=== PATIENT | male | born 1975 | race African-American/Black ===

== ENCOUNTER 2018-10-01 23:52 | Inpatient (IN) | payer OTHER ==
[~2018-10-01] VITALS: Ht 177.8 cm; Wt 142.0 kg
[2018-10-01 23:54] VITALS: BP 144/70
[2018-10-02] VITALS (32 sets, daily range): BP systolic 108–162; BP diastolic 47–92
[2018-10-02 00:27] LABS: ABSOLUTE BASOPHILS 0.1 thou/uL (0.0-0.2); ABSOLUTE EOSINOPHILS 0.1 thou/uL (0.0-0.7); ABSOLUTE LYMPHOCYTES 3.5 thou/uL (0.8-5.3); ABSOLUTE MONOCYTES 0.9 thou/uL (0.0-1.2); ABSOLUTE NEUTROPHILS 6.3 thou/uL (1.6-8.1); BASOPHILS 1.3 %; HEMATOCRIT 48.5 % (42.0-52.0); HEMOGLOBIN 16.7 gm/dL (14.0-18.0); LYMPHOCYTES 31.8 %; MCHC 34.4 g/dL (28.0-37.0); MONOCYTES 7.8 %; MPV 8.8 fl. (7.2-11.1); NUCLEATED RBCS 0 /100WBC; PLATELET COUNT* 225 thou/uL (150-400); POLYS 58.1 %; RBC 5.39 mil/uL (4.50-6.00); RDW-CV 13.6 % (10.5-14.5); WBC 10.9 thou/uL (4.0-11.0)
[2018-10-02 00:33] LABS: ANION GAP 11 mmol/L (7-16); APTT 26.1 Seconds (25.0-31.3); BUN 16 mg/dL (7-18); CALCIUM 8.6 mg/dL (8.5-10.1); CHLORIDE 104 mmol/L (98-107); CO2 27 mmol/L (21-32); CREATININE 1.2 mg/dL (0.6-1.3); GLUCOSE 125 mg/dL (70-99); INR 0.9; POTASSIUM 3.6 mmol/L (3.5-5.1); PROTIME 9.4 Seconds (9.20-11.50); SODIUM 142 mmol/L (136-145)
[2018-10-02 00:43] LABS: ALBUMIN 3.4 g/dL (3.4-5.0); ALKALINE PHOSPHATASE 77 U/L (46-116); LIPASE 130 U/L (73-393); MAGNESIUM 2.2 mg/dL (1.8-2.4); NT-PRO BRAIN NAT PEPTIDE 118 pg/mL (<300); SGPT 169 U/L (30-65); TOTAL BILIRUBIN 0.3 mg/dL (<0.1-1.0); TROPONIN-I LEVEL <0.06 ng/mL (<0.06)
[2018-10-02 01:15] LABS: SGOT 183 U/L (15-37)
[2018-10-02 04:37] LABS: CHOLESTEROL 244 mg/dL (<200); HDL CHOLESTEROL 33 mg/dL (>40); LDL CHOLESTEROL 146 mg/dL (<100); SERUM ASSESSMENT Moderate Lipemia; TC:HDL 7.4 Ratio (Not establshd); TRIGLYCERIDE 328 mg/dL (<150); VLDL 66 mg/dL (<40)
[2018-10-02 08:41] LABS: CALCIUM 8.5 mg/dL (8.5-10.1); POTASSIUM 3.9 mmol/L (3.5-5.1); TROPONIN-I LEVEL 0.11 ng/mL (<0.06)
--- NOTE | 2018-10-02 14:12 | CON ---
[address] [address] CONSULTATION Name: MICA VALENZUELA Room: [address] IN [facility]#: [id number] Admission: 10/02/18 Attend Phys: Rubio Santiago MD Discharge: Date of : 71 Report #: [id number] THIS REPORT FOR: //name// CC: Chuy Santiago INDICATION: Complete heart block. HISTORY OF PRESENT ILLNESS: The patient is a very pleasant 43-year-old gentleman who has had intermittent symptoms of lightheadedness, dizziness and even syncope for the last couple of years. He presented to the Emergency Room when he had prolonged symptoms and was found to be in complete heart block. He describes a slight chest pressure, lightheadedness, dizziness. He is without overt chest pain. He denies any other cardiac complaint at this time. He has no prior cardiac history. PAST MEDICAL HISTORY: Hyperlipidemia. HOME MEDICATIONS: None. ALLERGIES: None. FAMILY HISTORY: The patient's mother has a pacemaker. SOCIAL HISTORY: The patient drinks alcohol occasionally, marijuana occasionally. He does not smoke tobacco. REVIEW OF SYSTEMS: He reports some chest tightness, but denies any palpitations or pressure. He is without other complaint. PHYSICAL EXAMINATION: VITAL SIGNS: Blood pressure is 144/70, and heart rate 30. Telemetry shows third degree AV block. HEENT: Extraocular muscles intact. Mucous membranes are moist. NECK: Shows no jugular venous distention. CHEST: Reveals clear lung sullivan. CARDIAC: Reveals a regular rhythm that is bradycardia without gallop or murmur. ABDOMEN: Reveals a protuberant abdomen, soft and nontender. EXTREMITIES: Shows no edema. Peripheral pulses are 2+ and palpable. SKIN: Warm and dry. A 12-lead EKG shows complete heart block with ventricular response of approximately 30 beats per minute. LABORATORY DATA: Unremarkable. IMPRESSION AND RECOMMENDATIONS: [place] [address] CONSULTATION Name: VALENZUELAMICA HOLGUIN Gloria Room: [address]#: [id number] Admission: 10/02/18 Attend Phys: Rubio Santiago MD Discharge: Date of : 71 Report #: [id number] 1. Complete heart block. The patient will have a temporary pacemaker placed. We will need permanent pacemaker placement ultimately. 2. Chest tightness, likely due to third degree AV block. We will serial cardiac enzymes. Further cardiac evaluation to include an echocardiogram and stress testing. 3. Hyperlipidemia. We will check fasting lipid profile and see if a lipid lowering agent is indicated at this time. <ELECTRONICALLY SIGNED> By: Vasu Charles MD, [facility] 10/02/18 1412 0158 1250Micnaomy Charles MD, FACC /nt
--- NOTE | 2018-10-02 14:27 | CARD ---
[address] [address] CARDIAC CATH REPORT Name: MICA VALENZUELA Room: [address] IN [facility]#: [id number] Admission: 10/02/18 Attend Phys: Rbuio Santiago MD Discharge: Date of : 71 Report #: [id number] THIS REPORT FOR: //name// APPROVED REPORT Study performed: 10/02/2018 00:55:48 Patient Status: In-Patient Room #: Exam: temporary pacemaker placement Indications: Complete Heart Block The patient is a 43 year-old male with a history of Complete Heart Block. Implanted Devices: Temp Pacer insertyed Procedure The patient underwent informed consent. We discussed the details of the procedure including the risks, which include, but not limited to bleeding, infection, vascular damage, cardiac perforation, and pneumothorax. After consent was obtained the patient was brought to the cardiac catheterization lab emergently. The area of the right groin was prepped and draped in sterile fashion. A 6 Divehi venous sheath was placed using the Seldinger technique. A temporary pacemaker was advanced to a secure position with the right ventricular apex. Thresholds were checked in the newly satisfactory. The introducer was sutured in place. A sterile dressing was placed over the temporary pacemaker. The patient was transferred back to the ICU in stable condition. Conclusion 1. Complete heart block. 2. Successful placement of temporary pacemaker via the right femoral vein. Recommendations 1. Plan for permanent pacemaker placement in the near future. <ELECTRONICALLY SIGNED> By: Vasu Charles MD, [facility] 10/02/18 1426 1426 1426Micnaomy Charles MD, FAC /INF
--- NOTE | 2018-10-02 14:32 | CARD ---
[address] [address] CARDIAC CATH REPORT Name: MICA VALENZUELA Room: [address] IN [facility]#: [id number] Admission: 10/02/18 Attend Phys: Rubio Santiago MD Discharge: Date of : 71 Report #: [id number] THIS REPORT FOR: //name// APPROVED REPORT Study performed: 10/02/2018 13:13:33 Patient Status: In-Patient Room #: Exam: Insertion of Dual Chamber Permanent Pacemaker Indications: Complete Heart Block The patient is a 43 year-old male with a history of Complete Heart Block. Implanted Devices: DUAL PPM 100Fent 4 Versed Biotronik Eluna 8 DRt, model #426027, serial #[id number] dual-chamber pacing generator. Biotronik Solia S 60, model #253970, serial number [id number] ventricular lead. Biotronik Solia S 53, model #208340, serial #[id number] atrial lead. Procedure The patient underwent informed consent. We discussed the details of the procedure including the risks, which include, but not limited to bleeding, infection, vascular damage, cardiac perforation, and pneumothorax. He understood these risks and was willing to proceed. As such, he was brought to the EP/Cardiac Catheterization laboratory in a fasting and sedated state and prepped and draped in a The patient underwent conscious sedation, with no related complications. The patient was brought to the EP/Cardiac Catheterization laboratory and the left chest and shoulder were prepped and draped in a sterile manner. During this case, Fluoroscopy and visipaque 10cc were used for imaging. The left subclavian region was infiltrated with 2% Lidocaine subcutaneous anesthesia. A transverse incision was made in the left upper chest cavity. The subcutaneous pocket was formed via blunt dissection. Percutaneous venous access was achieved and an introducer sheath was inserted into the [place] [address] CARDIAC CATH REPORT Name: MICA VALENZUELA Room: [address] IN [facility]#: [id number] Admission: 10/02/18 Attend Phys: Rubio Santiago MD Discharge: Date of : 71 Report #: [id number] Sheaths were positions using the modified Seldinger technique Through the introducer sheaths the atrial and ventricular lead wires were positioned in the right atrial appendage and right ventricular apex respectively. Capturing and sensing thresholds were verified. Electrode Parameters P Wave: 4.5 mV R Wave: 10.2 mV Atrial Threshold: 1.2 V at 0.40 ms Ventricular Threshold: 0.9 V at 0.40 ms Atrial Resistance: 687 ohms Ventricular Resistance: 1148 ohms Dual Chamber The atrial and ventricular leads were then secured using 0 silk sutures. The subcutaneous pocket was irrigated with ancef antibiotic solution.The atrial and ventricular leads were attached to the appropriate receptacles on the pulse generator and set screws firmly tightened to insure adequate contact and stability. The lead and pulse generator were placed into the subcutaneous pocket. Sharp and sponge counts were confirmed to be correct. At this time the pocket was closed subcutaneously with a 2.0 Vicryl and the skin was closed with a 4.0 Vicryl. The operative site was dressed in sterile fashion with steri strips and the patient was transferred to the floor in stable condition. Complications The patient tolerated the procedure well and there were no complications associated with the procedure. Findings Mode: DDD/CLS. Lower rate 60 bpm. Upper Rate 130 bpm. Paced AV delay 200 ms. Sensed AV delay 180 ms. Conclusion 1. Complete heart block. 2. Successful placement of a dual-chamber pacemaker with atrial and ventricular lead placement[place] [address] CARDIAC CATH REPORT Name: VALENZUELAMICA Castro Room: [address]#: [id number] Admission: 10/02/18 Attend Phys: Rubio Santiago MD Discharge: Date of : 71 Report #: [id number] 1. Follow-up site check in one week. 2. Follow-up device check in the office in one month. <ELECTRONICALLY SIGNED> By: Vasu Charles MD, [facility] 10/02/18 1432 1432 1432Vasu Charles MD, FACC /INF
[2018-10-03] VITALS (12 sets, daily range): BP systolic 132–164; BP diastolic 83–98
[2018-10-03 02:05] LABS: GLYCOHEMOGLOBIN (HGB A1C) 5.5 % (4.8-5.6)
[2018-10-03 04:26] LABS: HEMATOCRIT 47.9 % (42.0-52.0); HEMOGLOBIN 16.6 gm/dL (14.0-18.0); MCH 31.3 pg (26.0-34.0); MCHC 34.6 g/dL (28.0-37.0); MCV 90.3 fL (80.0-100.0); MPV 8.7 fl. (7.2-11.1); RBC 5.3 mil/uL (4.50-6.00); RDW-CV 13.5 % (10.5-14.5); WBC 9.1 thou/uL (4.0-11.0)
[2018-10-03 04:45] LABS: CALCIUM 8.4 mg/dL (8.5-10.1); MAGNESIUM 1.7 mg/dL (1.8-2.4); POTASSIUM 3.9 mmol/L (3.5-5.1)
[2018-10-03] MEDS ORDERED: ASPIRIN81 M2 PO (07:19)
[2018-10-03] MEDS ORDERED: LIPITOR 20 MG T20 M1 PO (07:19)
--- NOTE | 2018-10-03 10:33 | EKG ---
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: : 1975 Requested By: Vasu Charles Order Number: [id number] Reading : Evans Houston Measurements Intervals Martin Rate: 68 P: 27 NH: 243 QRS: -77 QRSD: 208 T: 97 QT: 518 QTc: 552 Interpretive Statements Sinus rhythm Prolonged NH interval Nonspecific IVCD with LAD LVH with secondary repolarization abnormality No previous ECG available for comparison Electronically Signed On 10-03-2018 10:33:02 CDT by Evans Houston [email or web address] <ELECTRONICALLY SIGNED> By: Evans Houston MD, [facility] 10/03/18 1033 0852 0852 Evans Houston MD, [facility] /EPI
--- NOTE | 2018-10-03 14:27 | EKG ---
[place] [address] ELECTROCARDIOGRAM REPORT Name: MICA VALENZUELA Room: [address] IN [facility]#: [id number] Admission: 10/02/18 Attend Phys: Rubio Santaigo MD Discharge: 10/03/18 Date of : 71 Report #: [id number] THIS REPORT FOR: //name// [facility] ED Test Date: 2018-10-01 Test Time: 23:56:36 Pat Name: MICA VALENZUELA Department: Room: [facility] Gender: M Front End Developer: SHEILA : 1975 Requested By: Tello Lazar Order Number: [id number] MD: Evans Houston Measurements Intervals [place] Rate: 31 P: 53 [place]: QRS: -77 QRSD: 153 T: 119 QT: 659 QTc: 474 Interpretive Statements Complete AV block with wide QRS complex RBBB and LAFB No previous ECG available for comparison Electronically Signed On 10-03-2018 14:26:51 CDT by Evans Houston [email or web address] <ELECTRONICALLY SIGNED> By: Evans Houston MD, [facility] 10/03/18 1426 2356 2356 Evans Houston MD, [facility] /EPI
--- NOTE | 2018-10-03 14:29 | EKG ---
[place] [address] ELECTROCARDIOGRAM REPORT Name: MICA VALENZUELA Room: [address] DIS IN ..#: [id number] Admission: 10/02/18 Attend Phys: Rubio Santiago MD Discharge: 10/03/18 Date of : 71 Report #: [id number] THIS REPORT FOR: //name// [facility] Test Date: 2018-10-03 Test Time: 08:54:19 Pat Name: MICA BIANCA Department: Room: [address] Gender: M Attending Physician: : 1975 Requested By: Vasu Charles Order Number: [id number] Reading MD: Evans Houston Measurements Intervals [place] Rate: 90 P: 168 VT: 43 QRS: -81 QRSD: 208 T: 94 QT: 501 QTc: 613 Interpretive Statements Ventricular-paced rhythm No further analysis attempted due to paced rhythm Compared to ECG 10/03/2018 08:52:23 Sinus rhythm no longer present First degree AV block no longer present Intraventricular conduction delay no longer present Left ventricular hypertrophy no longer present Early repolarization no longer present Electronically Signed On 10-03-2018 14:29:51 CDT by Evans Houston [email or web address] <ELECTRONICALLY SIGNED> By: Evans Houston MD, [facility] 10/03/18 1429 0854 0854 Evans Houston MD, [facility] /EPI
== END 2018-10-03 11:23 | disposition home or self-care (01) | DRG 243 ==
LOC: M.ERS 23:52 → M.ICU 10-02 00:47 → M.TBA-ER 10-02 00:47 → M.ICU 10-02 01:37
PROVIDERS: Emergency Medicine Emergency Medical Services; Internal Medicine Cardiovascular Disease; ADMIT Internal Medicine
DX: I44.2 Atrioventricular block, complete (principal); Z68.41 Body mass index [BMI] 40.0-44.9, adult; E66.01 Morbid (severe) obesity due to excess calories; E78.5 Hyperlipidemia, unspecified; R73.9 Hyperglycemia, unspecified; F12.90 Cannabis use, unspecified, uncomplicated; I25.10 Atherosclerotic heart disease of native coronary artery without angina pectoris; R73.03 Prediabetes; Z79.899 Other long term (current) drug therapy; Z82.49 Family history of ischemic heart disease and other diseases of the circulatory system

== ENCOUNTER 2018-12-05 02:21 | Emergency (ER) | payer OTHER ==
[~2018-12-05] VITALS: Ht 177.8 cm; Wt 147.4 kg
[~2018-12-05 02:21] MED LIST: ASPIRIN81 M2 PO; LIPITOR 20 MG T20 M1 PO
[2018-12-05] MEDS ORDERED: FISH OIL 1,001000 M2 PO (02:32)
[2018-12-05 03:30] LABS: ABSOLUTE BASOPHILS 0.1 thou/uL (0.0-0.2); ABSOLUTE EOSINOPHILS 0.2 thou/uL (0.0-0.7); ABSOLUTE LYMPHOCYTES 2.5 thou/uL (0.8-5.3); ABSOLUTE MONOCYTES 1.1 thou/uL (0.0-1.2); ABSOLUTE NEUTROPHILS 5.3 thou/uL (1.6-8.1); EOSINOPHILS 2.6 %; HEMATOCRIT 48.4 % (42.0-52.0); HEMOGLOBIN 16.2 gm/dL (14.0-18.0); LYMPHOCYTES 27.1 %; MCH 30.2 pg (26.0-34.0); MCHC 33.5 g/dL (28.0-37.0); MONOCYTES 12.3 %; MPV 8.9 fl. (7.2-11.1); NUCLEATED RBCS 0 /100WBC; PLATELET COUNT* 197 thou/uL (150-400); RBC 5.38 mil/uL (4.50-6.00); RDW-CV 13.2 % (10.5-14.5); WBC 9.3 thou/uL (4.0-11.0)
[2018-12-05 03:38] LABS: CALCIUM 8.9 mg/dL (8.5-10.1); CREATININE 1.3 mg/dL (0.6-1.3); POTASSIUM 3.8 mmol/L (3.5-5.1)
[2018-12-05 04:14] LABS: URINE BILIRUBIN NEGATIVE (Negative); URINE BLOOD 3+ (Negative); URINE CLARITY SL CLOUDY; URINE COLOR YELLOW; URINE GLUCOSE-RANDOM NEGATIVE (Negative); URINE KETONES NEGATIVE (Negative); URINE LEUKOCYTES-REFLEX NEGATIVE (Negative); URINE NITRITE-REFLEX NEGATIVE (Negative); URINE PROTEIN 1+ (Negative); URINE UROBILINOGEN 0.2 E.U./dl (0.2-1.0)
[2018-12-05] MEDS ORDERED: NORCO 5-325 TA1 EAC1 PO (04:53)
[2018-12-05 05:12] VITALS: BP 139/71
[2018-12-05 05:15] LABS: BACTERIA-REFLEX 1-9 Few /HPF (None Seen); CASTS None Seen /LPF (None Seen); MUCUS 0-3 Light strn/LPF (None Seen); SQUAMOUS 0-3 Few /LPF (0-3); URINE RBC >20 Many /HPF (0-2); URINE WBC-REFLEX 0-5 Rare /HPF (0-5)
[2018-12-05 05:16] LABS: CRYSTALS None Seen /LPF (None Seen)
== END 2018-12-05 05:16 | disposition home or self-care (01) ==
LOC: M.ERS 02:21
PROVIDERS: Emergency Medicine
DX: N20.1 Calculus of ureter (principal); E78.00 Pure hypercholesterolemia, unspecified

== ENCOUNTER 2019-11-14 08:49 | Inpatient (IN) | payer OTHER ==
[~2019-11-14] VITALS: Ht 177.8 cm; Wt 133.8 kg
[~2019-11-14 08:49] MED LIST changes: +FISH OIL 1,001000 M2 PO; +NORCO 5-325 TA1 EAC1 PO
[2019-11-14 09:08] VITALS: BP 127/65
[2019-11-14] MEDS ORDERED: TOPROL XL25 MG PO (09:38)
[2019-11-14] MEDS ORDERED: TESTOSTERONE (09:39)
[2019-11-14 09:57] LABS: HEMOGLOBIN 19.5 gm/dL (14.0-18.0); MCH 31.5 pg (26.0-34.0); MCHC 34.8 g/dL (28.0-37.0); MCV 90.4 fL (80.0-100.0); MPV 8.3 fl. (7.2-11.1); NUCLEATED RBCS 0 /100WBC; PLATELET COUNT* 196 thou/uL (150-400); WBC 8.3 thou/uL (4.0-11.0)
[2019-11-14 10:15] LABS: CALCIUM 7.8 mg/dL (8.5-10.1)
[2019-11-14 10:16] LABS: BE -0.3 mmol/L (-2 to +3); PCO2 34.6 mmHg (35.0-45.0); PO2 64.4 mmHg (75.0-100.0); pH 7.439 (7.340-7.450)
[2019-11-14 10:17] LABS: APTT 30.7 Seconds (25.0-31.3); PROTIME 10.8 Seconds (9.20-11.50)
[2019-11-14 10:26] LABS: TOTAL BILIRUBIN 0.5 mg/dL (<0.1-1.0); TOTAL PROTEIN 6.7 g/dL (6.4-8.2)
[2019-11-14 10:51] LABS: ABSOLUTE EOSINOPHILS 0.2 thou/uL (0.0-0.7); ABSOLUTE LYMPHOCYTES 0.7 thou/uL (0.8-5.3); ABSOLUTE MONOCYTES 0.2 thou/uL (0.0-1.2); ABSOLUTE NEUTROPHILS 7.2 thou/uL (1.6-8.1); PLATELET ESTIMATE ADEQUATE
[2019-11-14 14:45] VITALS: BP 106/83
--- NOTE | 2019-11-14 15:03 | EKG ---
[place] [address] ELECTROCARDIOGRAM REPORT Name: MICA VALENZUELA JR Room: [place] [address] 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: : 1975 Requested By: Hi Spence Order Number: [id number] MD: Valeriy Stein Measurements Intervals [place] Rate: 79 P: 45 WV: 190 QRS: -49 QRSD: 176 T: 126 QT: 412 QTc: 473 Interpretive Statements Sinus rhythm Probable left atrial enlargement Left bundle branch block Compared to ECG 10/03/2018 08:54:19 Left bundle-branch block now present atrial and Ventricular-paced complex(es) or rhythm no longer present Electronically Signed On 11-14-2019 15:02:46 CDT by Valeriy Stein [email or web address] <ELECTRONICALLY SIGNED> By: Valeriy Stein MD, [facility] 11/14/19 1502 7 Valeriy Stein MD, [facility] /EPI
[2019-11-14 23:07] LABS: HEPATITIS B SURFACE AG Negative (Negative)
[2019-11-15] VITALS (35 sets, daily range): BP systolic 94–158; BP diastolic 41–94
[2019-11-15 08:55] LABS: ALBUMIN 2.7 g/dL (3.4-5.0); CALCIUM 8.2 mg/dL (8.5-10.1); MAGNESIUM 2.1 mg/dL (1.8-2.4); POTASSIUM 3.4 mmol/L (3.5-5.1); TOTAL BILIRUBIN 0.4 mg/dL (<0.1-1.0); TOTAL PROTEIN 7.4 g/dL (6.4-8.2)
[2019-11-15 09:02] LABS: BE 1.9 mmol/L (-2 to +3); PCO2 39.6 mmHg (35.0-45.0); pH 7.437 (7.340-7.450)
[2019-11-15 09:05] LABS: PO2 55.6 mmHg (75.0-100.0)
--- NOTE | 2019-11-15 16:13 | 2DMMODE ---
[place] [address] 2 D/M-MODE ECHOCARDIOGRAM Name: MICA VALENZUELA JR [facility] .R#: [id number] Admission: 11/14/19 Attend Phys: Rubio Santiago, Discharge: Date of : 71 Date of Service: 11/15/19 1613 Report #: [id number] THIS REPORT FOR: cc: Chuy Rocha MD, Anthony MD Holkins,Rome Pierce MD [facility] ~ APPROVED REPORT Study performed: 11/15/2019 14:56:43 EXAM: Comprehensive 2D, Doppler, and color-flow Echocardiogram Patient Location: In-Patient Room #: 001 Status: routine BSA: 2.51 HR: 85 bpm BP: 96/52 mmHg Rhythm: NSR Other Information Study Quality: Good Indications Dyspnea 2D Dimensions IVSd: 16.01 (7-11mm) LVOT Diam: 20.20 (18-24mm) LVDd: 47.53 mm PWd: 14.64 (7-11mm) Ascending Ao: 33.03 (22-36mm) LVDs: 24.93 (25-40mm) Aortic Root: 36.98 mm Volumes Left Atrial Volume (Systole) LA ESV Index: 26.20 mL/m2 Aortic Valve AoV Peak Kaleb.: 1.55 m/s AO Peak Gr.: 9.64 mmHg LVOT Max P.87 mmHg AO Mean Gr.: 6.23 mmHg LVOT Mean P.16 mmHg LVOT Max V: 1.40 m/s AO V2 VTI: 25.50 cm LVOT Mean V: 0.95 m/s DARLENE (VTI): 2.99 cm2 LVOT V1 VTI: 23.78 [place] [address] 2 D/M-MODE ECHOCARDIOGRAM Name: MICA VALENZUELA Room: [address] IN [facility]#: [id number] Admission: 11/14/19 Attend Phys: Rubio Santiago, Discharge: Date of : 71 Date of Service: 11/15/19 1613 Report #: [id number] Mitral Valve E/A Ratio: 1.33 MV Decel. Time: 218.17 ms MV E Max Kaleb.: 0.87 m/s MV PHT: 63.27 ms MVA (PHT): 3.48 cm2 TDI E/Lateral E': 12.43 E/Medial E': 8.70 Medial E' Kaleb.: 0.10 m/s Lateral E' Kaleb.: 0.07 m/s Pulmonary Valve PV Peak Kaleb.: 1.33 m/s PV Peak Gr.: 7.10 mmHg Left Ventricle The left ventricle is normal size. There is normal LV segmental wall motion. Mild concentric left ventricular hypertrophy. Left ventricular systolic function is normal. The left ventricular ejection fraction is within the normal range. LVEF is 60-65%. The left ventricular diastolic function is normal. Right Ventricle The right ventricle is normal size. The right ventricular systolic function is normal. Atria The left atrium size is normal. The right atrium size is normal. Aortic Valve The aortic valve is normal in structure. No aortic regurgitation is present. There is no aortic valvular stenosis. Mitral Valve The mitral valve is normal in structure. There is no mitral valve regurgitation noted. No evidence of mitral valve stenosis. Tricuspid Valve The tricuspid valve is normal in structure. Unable to assess PA pressure. Trace tricuspid regurgitation. Pulmonic Valve The pulmonary valve is normal in structure. There is no pulmonic [place] [address] 2 D/M-MODE ECHOCARDIOGRAM Name: MICA VALENZUELA JR Room: [address] IN [facility]#: [id number] Admission: 11/14/19 Attend Phys: Rubio Santiago, Discharge: Date of : 71 Date of Service: 11/15/19 1613 Report #: [id number] Great Vessels The aortic root is normal in size. IVC is normal in size and collapses >50% with inspiration. Pericardium There is no pericardial effusion. <Conclusion> The left ventricle is normal size. Mild concentric left ventricular hypertrophy. Left ventricular systolic function is normal. The left ventricular ejection fraction is within the normal range. LVEF is 60-65%. The right ventricle is normal size. The left atrium size is normal. The aortic valve is normal in structure. The mitral valve is normal in structure. The tricuspid valve is normal in structure. IVC is normal in size and collapses >50% with inspiration. There is no pericardial effusion. There is normal LV segmental wall motion. <ELECTRONICALLY SIGNED> By: Rome Cavanaugh MD, FACC 11/15/19 1613 1613 1613 Rome Cavanaugh MD, FACC /INF
--- NOTE | 2019-11-15 16:22 | EKG ---
[place] [address] ELECTROCARDIOGRAM REPORT Name: MICA VALENZUELA JR Room: [address] ADM IN .R.#: [id number] Admission: 11/14/19 Attend Phys: Rubio Santiago, Discharge: Date of : 71 Date of Service: 11/15/19 1212 Report #: [id number] THIS REPORT FOR: //name// [facility] Test Date: 2019-11-15 Test Time: 12:12:59 Pat Name: MICA VALENZUELA Department: Room: [address] Gender: M Gill Net Stringer: [facility] : 1975 Requested By: Rubio Santiago Order Number: [id number] MD: Rome Cavanaugh Measurements Intervals [place] Rate: 91 P: 77 [place]: 198 QRS: -31 QRSD: 184 T: 128 QT: 436 QTc: 537 Interpretive Statements Sinus rhythm Borderline prolonged [place] interval LBBB Prolonged QT interval Compared to ECG 11/14/2019 09:38:30 heart rate has increased Electronically Signed On 11-15-2019 16:21:54 CDT by Rome Cavanaugh [email or web address] <ELECTRONICALLY SIGNED> By: Rome Cavanaugh MD, [facility] 11/15/19 1621 1212 1212 Rome Cavanaugh MD, [facility] /EPI
--- NOTE | 2019-11-15 17:15 | CON ---
[address] [address] CONSULTATION Name: MICA VALENZUELA JR Room: [address] IN [facility]#: [id number] Admission: 11/14/19 Attend Phys: Rubio Santiago MD Discharge: Date of : 71 Report #: [id number] THIS REPORT FOR: //name// cc: Chuy Rocha MD, Anthony MD ~ THIS REPORT FOR: //name// CC: Chuy Charles DATE OF SERVICE: 11/15/2019 INFECTIOUS DISEASE CONSULTATION ATTENDING PHYSICIAN: Rubio Santiago MD REASON FOR EVALUATION: COVID-19 infection, complicated pneumonitis with respiratory failure. HISTORY OF PRESENT ILLNESS: Chart reviewed, patient examined. This is a 44-year-old gentleman with known cardiac disease, has a previous requirement for a pacemaker due to ventricular dysrhythmias, also has obesity, who apparently has been ill for roughly about the last week, noted onset of fevers. Subsequent to that developed progressive dyspnea with cough. He was anorexic with poor p.o. intake. He noted fatigue, lack of energy, did present to the Emergency Room and rapid testing for COVID was negative; however, confirmatory test was indeed positive. He was seen in intensive care unit. He is on high dose supplemental oxygen per BiPAP with FiO2 of 60%. He is generally lucid. He is having intermittent cough. He was empirically started on therapy with cefdinir, azithromycin, also the remdesivir and corticosteroid. ALLERGIES: None known, although there is some question of ibuprofen, he has got recent onset of suspected drug eruption. CURRENT MEDICATIONS: Include azithromycin, metoprolol, aspirin, cefdinir, atorvastatin, enoxaparin, albuterol, remdesivir, and prednisone. PAST MEDICAL HISTORY: As described above, high cholesterol, history of cardiac dysrhythmias with pacemaker, obesity, hypertension. SOCIAL HISTORY: Nonsmoker, occasional ethanol, no illicit drug use. FAMILY HISTORY: Noncontributory. REVIEW OF SYSTEMS: Otherwise, unremarkable 10-[place] [address] CONSULTATION Name: MICA VALENZUELA Room: [address] IN [facility]#: [id number] Admission: 11/14/19 Attend Phys: Rubio Santiago MD Discharge: Date of : 71 Report #: [id number] PHYSICAL EXAMINATION: GENERAL: He is in marked respiratory distress. He has BiPAP in place. He is lucid. VITAL SIGNS: Temperature 97.6, pulse 80, respirations 18, blood pressure 124/70. SKIN: Warm, dry. HEENT: Normocephalic. Extraocular muscles intact. NECK: Supple. LUNGS: Scattered coarse breath sounds. HEART: Regular. I do not appreciate a murmur. ABDOMEN: Obese, soft, nontender. There are no peritoneal signs. GENITOURINARY AND RECTAL: Deferred. LABORATORY DATA: Coronavirus confirmatory test was positive. Blood cultures sterile thus far. ABGs from earlier today, pH 7.437, pCO2 of 39.6, pO2 55.6, FiO2 of 8 liters. He is now on BiPAP. Electrolytes: Sodium 139, potassium 3.4, chloride 102, bicarbonate 27, anion gap of 10, BUN and creatinine 16 and 1.0, glucose of 159. AST of 54, ALT of 91. Total protein of 7.4, albumin of 2.7. Hepatitis panel was negative. CTA chest PE protocol, no evidence of PE, patchy diffuse interstitial alveolar infiltrates. CBC: White count of 8.3, H and H 19.5 and 56, platelets of 196, have a lymphocytopenia of 700. Lactic acid initially was 1.0. D-dimer slightly elevated at 0.77, INR 1.0. Chest x-ray initially showed patchy diffuse interstitial infiltrates. ASSESSMENT AND PLAN: COVID-19 positive complicated by pneumonitis with respiratory failure, remains quite tenuous. At this point he has been started on combination therapy including remdesivir, corticosteroids. We will check some inflammatory markers may be a candidate for IL-6 inhibitor and perhaps convalescent plasma. We will continue support attempt to wean as allowed. <ELECTRONICALLY SIGNED> By: Yvan Paulino MD 11/15/19 1715 1259 [id number] Paulino MD /nt
[2019-11-15 21:06] LABS: HIV-1/HIV-2 ANTIBODY Non Reactive (Non Reactive)
[2019-11-16] VITALS (18 sets, daily range): BP systolic 113–157; BP diastolic 61–82
[2019-11-16 03:06] LABS: HEPATITIS B SURFACE AG Negative (Negative)
[2019-11-16 04:14] LABS: HEMATOCRIT 52.4 % (42.0-52.0); HEMOGLOBIN 17.9 gm/dL (14.0-18.0); MCH 30.5 pg (26.0-34.0); MCV 89.5 fL (80.0-100.0); MPV 7.8 fl. (7.2-11.1); RBC 5.86 mil/uL (4.50-6.00); RDW-CV 14.2 % (10.5-14.5)
[2019-11-16 04:38] LABS: ALBUMIN 2.4 g/dL (3.4-5.0); CALCIUM 8.4 mg/dL (8.5-10.1); POTASSIUM 3.8 mmol/L (3.5-5.1); TOTAL BILIRUBIN 0.4 mg/dL (<0.1-1.0); TOTAL PROTEIN 6.9 g/dL (6.4-8.2)
[2019-11-17] VITALS (8 sets, daily range): BP systolic 146–157; BP diastolic 67–87
[2019-11-17 04:26] LABS: ALBUMIN 2.3 g/dL (3.4-5.0); CALCIUM 8.2 mg/dL (8.5-10.1); MAGNESIUM 2.3 mg/dL (1.8-2.4); POTASSIUM 4.1 mmol/L (3.5-5.1); TOTAL BILIRUBIN 0.4 mg/dL (<0.1-1.0); TOTAL PROTEIN 6.6 g/dL (6.4-8.2)
[2019-11-18 03:05] VITALS: BP 158/92
[2019-11-18 04:19] LABS: ALBUMIN 2.3 g/dL (3.4-5.0); CREATININE 1.1 mg/dL (0.6-1.3); MAGNESIUM 2.4 mg/dL (1.8-2.4); POTASSIUM 4.2 mmol/L (3.5-5.1); TOTAL BILIRUBIN 0.4 mg/dL (<0.1-1.0); TOTAL PROTEIN 6.3 g/dL (6.4-8.2)
[2019-11-18 07:31] VITALS: BP 150/92
[2019-11-18 08:00] VITALS: BP 150/92
[2019-11-18 12:00] VITALS: BP 133/83
[2019-11-18 16:00] VITALS: BP 123/79
[2019-11-18 21:15] VITALS: BP 178/99
[2019-11-19] VITALS: BP 146/87
[2019-11-19 03:55] VITALS: BP 143/81
[2019-11-19 06:01] LABS: HEMOGLOBIN 18.3 gm/dL (14.0-18.0); MCH 30.7 pg (26.0-34.0); MCHC 33.8 g/dL (28.0-37.0); MCV 90.7 fL (80.0-100.0); MPV 8.3 fl. (7.2-11.1); RBC 5.96 mil/uL (4.50-6.00); RDW-CV 13.9 % (10.5-14.5); WBC 11.9 thou/uL (4.0-11.0)
[2019-11-19 06:22] LABS: PREALBUMIN 20.5 mg/dL (18.0-35.7)
[2019-11-20 04:15] VITALS: BP 161/85
[2019-11-20 05:38] VITALS: BP 138/86
[2019-11-20 08:00] VITALS: BP 152/96
[2019-11-20 12:00] VITALS: BP 162/97
[2019-11-20 16:00] VITALS: BP 146/77
[2019-11-20 21:25] VITALS: BP 142/88
[2019-11-21 08:18] LABS: ALBUMIN 2.6 g/dL (3.4-5.0); CREATININE 1.3 mg/dL (0.6-1.3); MAGNESIUM 2.4 mg/dL (1.8-2.4); POTASSIUM 4.9 mmol/L (3.5-5.1); TOTAL BILIRUBIN 0.6 mg/dL (<0.1-1.0); TOTAL PROTEIN 5.8 g/dL (6.4-8.2)
[2019-11-21 08:20] VITALS: BP 139/83
[2019-11-21 08:30] VITALS: BP 139/83
[2019-11-21 15:33] VITALS: BP 162/84
[2019-11-21 21:00] VITALS: BP 146/78
[2019-11-22] MEDS ORDERED: PREDNISONE 20 M20 MG PO (07:25)
[2019-11-22] MEDS ORDERED: BENZONATATE100 MG PO (07:25)
[2019-11-22 10:57] VITALS: BP 146/78
[2019-11-22 13:55] VITALS: BP 127/68
== END 2019-11-22 14:45 | disposition home or self-care (01) | DRG 177 ==
LOC: M.ERS 08:49 → M.TBA-ER 10:41 → M.2W 10:41 → M.ICU 11-15 10:04
PROVIDERS: Family Medicine; ADMIT Internal Medicine; ATTEND Internal Medicine
PROC: 5A09357 Assistance with Respiratory Ventilation, Less than 24 Consecutive Hours, Continuous Positive Airway Pressure (ICD-10-PCS; principal; 2019-11-15)
PROC: 5A09357 Assistance with Respiratory Ventilation, Less than 24 Consecutive Hours, Continuous Positive Airway Pressure (ICD-10-PCS; 2019-11-16)
PROC: 5A09357 Assistance with Respiratory Ventilation, Less than 24 Consecutive Hours, Continuous Positive Airway Pressure (ICD-10-PCS; 2019-11-17)
PROC: 5A09357 Assistance with Respiratory Ventilation, Less than 24 Consecutive Hours, Continuous Positive Airway Pressure (ICD-10-PCS; 2019-11-18)
DX: U07.1 COVID-19 (principal); J12.89 Other viral pneumonia; J96.21 Acute and chronic respiratory failure with hypoxia; Z68.41 Body mass index [BMI] 40.0-44.9, adult; B48.8 Other specified mycoses; E66.01 Morbid (severe) obesity due to excess calories; D75.1 Secondary polycythemia; E78.00 Pure hypercholesterolemia, unspecified; E78.5 Hyperlipidemia, unspecified; I10 Essential (primary) hypertension; R74.0 Nonspecific elevation of levels of transaminase and lactic acid dehydrogenase [LDH]; Z88.6 Allergy status to analgesic agent; Z95.0 Presence of cardiac pacemaker; Z79.899 Other long term (current) drug therapy